=== PATIENT | female | born 1985 | race Hispanic/Latino ===

== ENCOUNTER 2021-03-31 00:35 | Emergency (ER) | payer OTHER ==
[2021-03-31 01:37] VITALS: BP 146/85
--- NOTE | 2021-03-31 02:52 | Emergency Department Report ---
ED Extremity Problem HPI - General Chief complaint: Extremity Injury, Lower Stated complaint: RT KNEE SWELLING/PAIN Source: patient Mode of arrival: Ambulatory Limitations: No Limitations - History of Present Illness Initial comments: Patient is a 36-year-old female with a history of chronic right knee joint pain who presented to the ED with acute exacerbation of her chronic right knee pain for the last 4 days. Patient states that the pain is worse with any ambulation or when she stays on her feet for a long time. Patient states that she has been taking Tylenol with no relief. Patient denies dizziness, syncope, fall, nausea and vomiting, chest pain or shortness of breath, heavy lifting, low back pain, hip pain or numbness and tingling or weakness of right leg. MD Complaint: extremity pain (Right knee pain), joint paint (Right knee pain) -: Sudden, days(s) (4) Location: right, lower extremity (Right knee pain), knee (Right knee pain) History of Same: Yes (Chronic) -: No myalgia, Yes arthralgia (Right knee pain), No fever, No associated dyspnea, No associated chest pain Radiation: none Severity scale (0 -10): 7 Quality: aching, sharp Consistency: constant Improves with: nothing Worsens with: weight bearing, walking, exertion, palpation Associated Symptoms: denies other symptoms, arthralgias. denies: chest pain, shortness of breath, fever, myalgias, rash - Related Data Previous Rx's Medication Instructions Recorded Last Taken Type Naproxen 500 mg PO Q12H PRN #30 tab 03/31/21 Unknown Rx predniSONE [Deltasone] 60 mg PO QDAY #15 tab 03/31/21 Unknown Rx traMADoL [Ultram] 50 mg PO Q6HR PRN #10 tablet 03/31/21 Unknown Rx Allergies Allergy/AdvReac Type Severity Reaction Status Date / Time No Known Allergies Allergy Unverified 03/31/21 01:41 ED Review of Systems ROS: Stated complaint: RT KNEE SWELLING/PAIN Other details as noted in HPI Constitutional: denies: chills, fever Eyes: denies: eye pain, eye discharge, vision change ENT: denies: ear pain, throat pain Respiratory: denies: cough, shortness of breath, wheezing Cardiovascular: denies: chest pain, palpitations Endocrine: no symptoms reported Gastrointestinal: denies: abdominal pain, nausea, diarrhea Genitourinary: denies: urgency, dysuria, discharge Musculoskeletal: arthralgia (Right knee pain). denies: back pain, joint swe lling Skin: denies: rash, lesions Neurological: denies: headache, weakness, paresthesias Psychiatric: denies: anxiety, depression Hematological/Lymphatic: denies: easy bleeding, easy bruising ED Past Medical Hx - Past Medical History Previous Medical History?: Yes Additional medical history: Chronic Right Knee pain. Tumor Right Knee. - Surgical History Past Surgical History?: Yes Additional Surgical History: X 4 - Social History Smoking Status: Current Every Day Smoker Substance Use Type: None - Medications Home Medications: Home Medications Medication Instructions Recorded Confirmed Last Taken Type Naproxen 500 mg PO Q12H PRN #30 tab 03/31/21 Unknown Rx predniSONE [Deltasone] 60 mg PO QDAY #15 tab 03/31/21 Unknown Rx traMADoL [Ultram] 50 mg PO Q6HR PRN #10 tablet 03/31/21 Unknown Rx ED Physical Exam - General Limitations: No Limitations General appearance: alert, in no apparent distress - Head Head exam: Present: atraumatic, normocephalic, normal inspection - Eye Eye exam: Present: normal appearance, PERRL, EOMI Pupils: Present: normal accommodation - ENT ENT exam: Present: normal exam, normal orophraynx, mucous membranes moist, TM's normal bilaterally, normal external ear exam - Neck Neck exam: Present: normal inspection, full ROM. Absent: tenderness - Respiratory Respiratory exam: Present: normal lung sounds bilaterally. Absent: respiratory distress, wheezes, rales, rhonchi, chest wall tenderness, accessory muscle use, decreased breath sounds, prolonged expiratory - Cardiovascular Cardiovascular Exam: Present: regular rate, normal rhythm, normal heart sounds. Absent: systolic murmur, diastolic murmur, rubs, gallop - GI/Abdominal GI/Abdominal exam: Present: soft, normal bowel sounds. Absent: tenderness, guarding, rebound, rigid, hyperactive bowel sounds, hypoactive bowel sounds, org anomegaly, mass, bruit, pulsatile mass, hernia - Extremities Exam Extremities exam: Present: normal inspection, tenderness (Palpable right knee tenderness), normal capillary refill. Absent: full ROM, pedal edema, joint swelling, calf tenderness - Back Exam Back exam: Present: normal inspection, full ROM. Absent: tenderness, CVA tenderness (R), CVA tenderness (L), muscle spasm, paraspinal tenderness, vertebral tenderness - Neurological Exam Neurological exam: Present: alert, oriented X3, CN II-XII intact, normal gait, reflexes normal - Psychiatric Psychiatric exam: Present: normal affect, normal mood - Skin Skin exam: Present: warm, dry, intact, normal color. Absent: rash ED Course Vital Signs 03/31/21 01:27 Temperature 98.6 F Pulse Rate 97 H Respiratory 18 Rate Blood Pressure 146/85 O2 Sat by Pulse 99 Oximetry ED Medical Decision Making - Medical Decision Making This is a 36-year-old female with a history of chronic right knee joint pain who presented to the ED with acute exacerbation of her chronic right knee pain for the last 4 days. Patient states that the pain is worse with any ambulation or when she stays on her feet for a long time. Patient states that she has been taking Tylenol with no relief. In the ED, patient is alert and robert ented x3 and is not in any distress. Patient was treated for pain in the ED and discharged home on medications since her pain is chronic. Patient was discharged home on pain medications and advised to follow-up with her primary care physician in 7 to 10 days for reevaluation. Patient was advised return to the ED immediately if symptoms get worse. - Differential Diagnosis Degenerative joint disease; chronic knee pain; chronic bursitis; Critical care attestation.: If time is entered above; I have spent that time in minutes in the direct care of this critically ill patient, excluding procedure time. ED Disposition Clinical Impression: Chronic pain of right knee Degenerative joint disease of right knee Qualifiers: Osteoarthritis type: primary Qualified Code(s): M17.11 - Unilateral primary osteoarthritis, right knee Disposition: HOME / SELF CARE / HOMELESS Is pt being admited?: No Does the pt Need Aspirin: No Condition: Stable Instructions: Chronic Knee Pain, Adult, [id number], Osteoarthritis, Arthritis, [id number], Joint Pain, [id number] Additional Instructions: Take medication with food, drink plenty of fluids and follow-up with your primary care physician in 7 to 10 days for reevaluation. Return to the ED immediately if symptoms get worse. Prescriptions: predniSONE [Deltasone] 60 mg PO QDAY #15 tab Naproxen 500 mg PO Q12H PRN #30 tab PRN Reason: Pain , Severe (7-10) traMADoL [Ultram] 50 mg PO Q6HR PRN #10 tablet PRN Reason: Pain Referrals: [facility] [Provider Group] - 7-10 days Forms: Work/School Release Form(ED) Time of Disposition: 02:53 Print Language: EMIRATI
[2021-03-31] MEDS ORDERED: predniSONE 20 MG TAB PO ONE (02:55)
[2021-03-31] MEDS ORDERED: ONDANSETRON 4 MG ODT TAB PO ONE (02:55)
[2021-03-31] MEDS ORDERED: oxyCODONE /ACETAMINOPHEN 5-325MG TAB PO ONE (02:55)
[2021-03-31] MEDS ORDERED: IBUPROFEN 600 MG TAB PO ONE (02:55)
== END 2021-03-31 03:23 | disposition home or self-care (01) ==
LOC: ED 00:35
DX: G89.29 Other chronic pain (principal); M25.561 Pain in right knee; M17.11 Unilateral primary osteoarthritis, right knee; F17.200 Nicotine dependence, unspecified, uncomplicated
CPT/HCPCS: 99282; J3490; Q0162

== ENCOUNTER 2021-10-13 03:16 | Emergency (ER) | payer OTHER ==
[2021-10-13 04:27] VITALS: BP 123/88
== END 2021-10-13 04:40 | disposition left against medical advice (07) ==
LOC: ED 03:16
DX: N93.9 Abnormal uterine and vaginal bleeding, unspecified (principal); R10.9 Unspecified abdominal pain; Z53.21 Procedure and treatment not carried out due to patient leaving prior to being seen by health care provider

== ENCOUNTER 2021-11-02 21:17 | Emergency (ER) | payer OTHER ==
[2021-11-02 22:47] VITALS: BP 132/86
--- NOTE | 2021-11-02 23:37 | XRay Report ---
ABDOMEN 2 VIEWS INDICATION / CLINICAL INFORMATION: Abdominal Pain x2days. COMPARISON: None available. FINDINGS: TUBES / LINES: None. BOWEL GAS PATTERN: No significant abnormality. Moderate stool throughout large bowel. FREE AIR / EXTRALUMINAL GAS: None seen. ADDITIONAL FINDINGS: No significant additional findings. CHEST: Visualized chest shows no significant abnormality. IMPRESSION: 1. Nonobstructive bowel gas pattern. Moderate stool throughout large bowel. Signer Name: Ezio Garcia II, MD Signed: 11/02/2021 11:32 PM Workstation Name: [id number]
[2021-11-02 23:42] LABS: Amorphous Crystals,Urine 1+; Bacteria,Urine 1+ /HPF (Negative); Mucus,Urine FEW /HPF
[2021-11-02 23:43] LABS: Color,Urine Yellow (Yellow)
[2021-11-03 00:42] LABS: Basophils # (Auto) 0.1 K/mm3 (0.0-0.1); Basophils % (Auto) 0.7 % (0.0-1.8); Eosinophils # (Auto) 0.2 K/mm3 (0.0-0.4); Hematocrit 37.4 % (30.3-42.9); Hemoglobin 12.1 gm/dl (10.1-14.3); Lymphocytes # (Auto) 3.9 K/mm3 (1.2-5.4); Lymphocytes % (Auto) 50.1 % (13.4-35.0); Mean Corpuscular HGB Conc 32 % (30-34); Mean Corpuscular Volume 91 fl (79-97); Monocytes # (Auto) 0.5 K/mm3 (0.0-0.8); Monocytes % (Auto) 6.6 % (0.0-7.3); Platelet Count 325 K/mm3 (140-440); Red Blood Count 4.13 M/mm3 (3.65-5.03); Red Cell Distribution Width 13.3 % (13.2-15.2)
== END 2021-11-03 12:59 | disposition left against medical advice (07) ==
LOC: ED 21:17
DX: R10.9 Unspecified abdominal pain (principal); Z53.21 Procedure and treatment not carried out due to patient leaving prior to being seen by health care provider
CPT/HCPCS: 36415; 74019; 81001; 85025; 87086